=== PATIENT | female | born 1990 | race Hispanic/Latino ===

== ENCOUNTER 2021-02-27 19:29 | Emergency (ER) | payer OTHER, MEDICARE ==
[~2021-02-27] VITALS: Ht 160 cm; Wt 90.3 kg
[2021-02-27 21:03] LABS: APPEARANCE,URINE Cloudy (CLEAR); BILIRUBIN,URINE Negative (NEGATIVE); COLOR,URINE Yellow (YELLOW); GLUCOSE, URINE (UA) Negative (NEGATIVE); KETONES,URINE Negative (NEGATIVE); LEUKOCYTE ESTERASE ,URINE Moderate (NEGATIVE); NITRATE,URINE Negative (NEGATIVE); OCCULT BLOOD,URINE Negative (NEGATIVE); PROTEIN,URINE Negative (NEGATIVE)
[2021-02-27 21:05] LABS: BASOPHILS % (AUTO) 0.6 % (0.0-5.0); EOSINOPHILS % (AUTO) 2.8 % (0.0-8.0); HEMATOCRIT 39.8 % (36-48); LYMPHOCYTES % (AUTO) 31.6 % (21.0-51.0); MEAN CORPUSCULAR HEMOGLOBIN 31.9 pg (27.0-33.0); MEAN CORPUSCULAR HGB CONC 34.2 g/dL (32.0-36.0); MEAN CORPUSCULAR VOLUME 93.4 fL (79-99); NEUTROPHILS % (AUTO) 56.9 % (40.0-77.0); PLATELET COUNT (AUTO) 256 K/uL (130-400); RED BLOOD CELL COUNT(AUTO) 4.26 MIL/uL (4.00-5.50); RED CELL DISTRIBUTION WIDTH 12.2 % (11.0-15.5); WHITE BLOOD COUNT (AUTO) 6.8 K/uL (4.8-10.8)
[2021-02-27 21:05] LABS: HCG,QUAL RESULT NEGATIVE (NEGATIVE)
[2021-02-27 21:08] LABS: BACTERIA,URINE Few /HPF (None Seen); RBC,URINE 0-1 /HPF (0-1)
[2021-02-27 21:09] LABS: MUCUS,URINE Few LPF (None Seen); SQUAMOUS EPITHELIAL CELL,UR Moderate /HPF (0-2)
[2021-02-27 21:23] LABS: CREATININE 0.9 mg/dL (0.5-1.5); POTASSIUM 3.4 mmol/L (3.5-5.1)
[2021-02-27 21:30] LABS: ALBUMIN 3.7 g/dL (3.5-5.0); BILIRUBIN,TOTAL 0.4 mg/dL (0.2-1.0); TOTAL PROTEIN, SERUM 8.4 g/dL (6.0-8.3)
[2021-02-27] MEDS ORDERED: DICYCLOMINE 20MG (10MG/ML) AMP IM STA (23:09)
[2021-02-27] MEDS ORDERED: MAG-77 PO (23:17)
[2021-02-27] MEDS ORDERED: MAG/ALUM/SIMETH 30 ML UDCUP PO ONE (23:30)
[2021-02-27] MEDS ORDERED: PANTOPRAZOLE 40 MG TAB DR PO SCH (23:30)
[2021-02-27 23:59] VITALS: BP 123/78
== END 2021-02-28 00:05 | disposition home or self-care (01) ==
LOC: EDH 19:29
DX: K80.20 Calculus of gallbladder without cholecystitis without obstruction (principal); R10.13 Epigastric pain; E66.9 Obesity, unspecified; E78.00 Pure hypercholesterolemia, unspecified; Z68.39 Body mass index [BMI] 39.0-39.9, adult; Z90.49 Acquired absence of other specified parts of digestive tract
CPT/HCPCS: 36415; 74018; 76705; 80053; 81001; 81025; 83690; 85025; 86140; 86677; 87088; 96372; 99285; J0500

== ENCOUNTER 2022-07-24 06:02 | Emergency (ER) | payer OTHER, MEDICARE ==
[~2022-07-24] VITALS: Ht 160 cm; Wt 95.7 kg
[~2022-07-24 06:02] MED LIST: MAG-77 PO
[2022-07-24 06:13] VITALS: BP 124/80
[2022-07-24 06:37] LABS: BASOPHILS % (AUTO) 0.4 % (0.0-5.0); EOSINOPHILS % (AUTO) 3.3 % (0.0-8.0); HEMATOCRIT 39.8 % (36-48); LYMPHOCYTES % (AUTO) 28.8 % (21.0-51.0); MEAN CORPUSCULAR HEMOGLOBIN 30.4 pg (27.0-33.0); MEAN CORPUSCULAR HGB CONC 32.7 g/dL (32.0-36.0); MONOCYTES % (AUTO) 7.2 % (3.0-13.0); NEUTROPHILS % (AUTO) 59.9 % (40.0-77.0); PLATELET COUNT (AUTO) 254 K/uL (130-400); RED BLOOD CELL COUNT(AUTO) 4.28 MIL/uL (4.00-5.50); RED CELL DISTRIBUTION WIDTH 13.2 % (11.0-15.5); WHITE BLOOD COUNT (AUTO) 5.7 K/uL (4.8-10.8)
[2022-07-24] MEDS ORDERED: ESOM40CA PO (06:40)
[2022-07-24 06:41] LABS: APPEARANCE,URINE CLOUDY (CLEAR); BILIRUBIN,URINE 1 mg/dL (NEGATIVE); COLOR,URINE DARK-YELLOW (YELLOW); GLUCOSE, URINE (UA) NEGATIVE (NEGATIVE); KETONES,URINE NEGATIVE (NEGATIVE); LEUKOCYTE ESTERASE ,URINE 250 Leu/uL (NEGATIVE); NITRATE,URINE NEGATIVE (NEGATIVE); OCCULT BLOOD,URINE LARGE (NEGATIVE); PH,URINE 6.5 (5.0-8.0); PROTEIN,URINE 20 mg/dL (NEGATIVE); UROBILINOGEN,URINE >=8.0 mg/dL (0.2-1.0)
[2022-07-24 06:48] LABS: ALBUMIN 3.6 g/dL (3.5-5.0); CREATININE 0.8 mg/dL (0.5-1.5); POTASSIUM 3.8 mmol/L (3.5-5.1); TOTAL PROTEIN, SERUM 7.6 g/dL (6.0-8.3)
[2022-07-24 06:50] LABS: BACTERIA,URINE RARE /HPF (None Seen); MUCUS,URINE RARE LPF (None Seen); SQUAMOUS EPITHELIAL CELL,UR MANY /HPF (0-2)
[2022-07-24] MEDS ORDERED: SULF1TAB42 PO (06:57)
[2022-07-24] MEDS ORDERED: PANTOPRAZOLE 40 MG/VIAL IVP ONE (07:00)
== END 2022-07-24 07:13 | disposition home or self-care (01) ==
LOC: EDH 06:02
DX: K20.90 Esophagitis, unspecified without bleeding (principal); Z98.890 Other specified postprocedural states
CPT/HCPCS: 80053; 83690; 85025; 87088; 81001; 81025; 36415; 96374; 99283; C9113

== ENCOUNTER 2023-09-10 21:07 | Emergency (ER) | payer OTHER, MEDICARE ==
[~2023-09-10] VITALS: Ht 160 cm; Wt 101.2 kg
[~2023-09-10 21:07] MED LIST changes: +ESOM40CA PO; +SULF1TAB42 PO
[2023-09-10 22:45] LABS: APPEARANCE,URINE CLOUDY (CLEAR); BILIRUBIN,URINE NEGATIVE (NEGATIVE); COLOR,URINE YELLOW (YELLOW); GLUCOSE, URINE (UA) NEGATIVE (NEGATIVE); KETONES,URINE 5 mg/dL (NEGATIVE); LEUKOCYTE ESTERASE ,URINE 250 Leu/uL (NEGATIVE); NITRATE,URINE NEGATIVE (NEGATIVE); OCCULT BLOOD,URINE LARGE (NEGATIVE); PROTEIN,URINE 200 mg/dL (NEGATIVE)
[2023-09-10 22:48] LABS: ADD UA MICROSCOPIC YES
[2023-09-10 22:51] LABS: BACTERIA,URINE FEW /HPF (None Seen); MUCUS,URINE MANY LPF (None Seen); RBC,URINE 51-100 /HPF (0-1); SQUAMOUS EPITHELIAL CELL,UR MANY /HPF (0-2); WBC,URINE 51-100 /HPF (0-1); YEAST,URINE BUDDING RARE /HPF (None Seen)
[2023-09-10] MEDS ORDERED: EPINEPHRINE PF 1MG (1:1,000) 1 MG/ML AMP IH SCH (23:00)
[2023-09-10] MEDS: EPINEPHRINE PF 1MG (1:1,000) 1 MG/ML AMP IM SCH (23:09)
[2023-09-10] MEDS: DEXAMETHASONE SOD PHOSPHATE 4 MG/ML 1ML VIAL IM ONE (23:09)
[2023-09-10] MEDS: DIPHENHYDRAMINE HCL 25 MG CAPSULE PO ONE (23:10)
[2023-09-10] MEDS ORDERED: HC2530O TP (23:51)
[2023-09-10] MEDS ORDERED: AMOX1TAB16 PO (23:51)
[2023-09-11 01:21] VITALS: BP 126/64; PULSE 63; RESP 16; O2SAT 98
== END 2023-09-11 01:23 | disposition home or self-care (01) ==
LOC: EDH 21:07
DX: T78.40XA Allergy, unspecified, initial encounter (principal); M79.89 Other specified soft tissue disorders; N30.00 Acute cystitis without hematuria
CPT/HCPCS: 99284; 87088; 81001; 81025; 96372 ×2; J1100; Q0163; J0171

== ENCOUNTER 2024-08-27 13:59 | Emergency (ER) | payer OTHER, MEDICARE ==
[~2024-08-27] VITALS: Ht 160 cm; Wt 127.9 kg
[~2024-08-27 13:59] MED LIST changes: +AMOX1TAB16 PO; +HC2530O TP
[2024-08-27 14:18] VITALS: TEMP 97.8
[2024-08-27] MEDS ORDERED: SULF1TAB42 PO (14:57)
--- NOTE | 2024-08-27 15:00 | ERN ---
General Chief Complaint: Abscess Stated Complaint: PAIN IN PRIVATE AREA Time Seen by MD: 14:02 Time Seen by Midlevel: 14:02 Source: patient History of Present Illness Initial Comments Patient is a morbidly obese 34-year-old female presenting to the emergency department with right-sided labial pain and swelling that started yesterday. The patient reports a similar episode years ago but never followed up with her OBGYN. Denies any fever, chills, or any other symptoms at this time. Allergies: Coded Allergies: No Known Drug Allergies (Unverified Allergy, Unknown, 02/27/21) Home Meds Active Scripts Hydrocortisone (Hydrocortisone 2.5% Oint) 2.5 % Oint, 1 APPL TP TID for 7 Days, #30 APPL Apply small amount to affected area 3 times a day for 7 days. Prov:RIDDHI CASANOVA NP 09/10/23 Amoxicillin/Potassium Clav (Amox Tr-K Clv 875-125 mg Tab) 875 Mg-125 Mg Tablet, 1 EACH PO BID for 7 Days, #14 TAB 0 Refills Prov:RIDDHI CASANOVA NP 09/10/23 Sulfamethoxazole/Trimethoprim (Bactrim Ds Tablet) 1 Each Tablet, 1 TAB PO BID for 7 Days, #14 TAB 0 Refills Prov:MIRNA WHITTAKER MD 07/24/22 Esomeprazole Magnesium (Nexium) 40 Mg Capsule.dr, 40 MG PO DAILY, #30 CAP 0 Refills Prov:MIRNA WHITTAKER MD 07/24/22 Mag Carb/Al Hydrox/Alginic AC (Gaviscon Liquid) 355 Ml Oral.susp, 15 ML PO TIDPC for indigestion/heartburn, #1 BOTTLE 3 Refills Prov:ROCK CABA MD 02/27/21 Past Medical History Past Medical History: No Pertinent History Medical History Other: HARD OF HEARING Past Surgical History: Cholecystectomy Surgical History Other: Left mastoid Female( History) History: Not Applicable LMP: Apr 26, 2024 ROS Dictation CONSTITUTIONAL: Negative except for HPI HEAD/FACE: Negative except for HPI EENT: Negative except for HPI RESPIRATORY: Negative except for HPI GASTROINTESTINAL/ABDOMINAL: Negative except for HPI GENITOURINARY: Negative except for HPI MUSCULOSKELETAL: Negative except for HPI INTEGUMENTARY: Negative except for HPI NEUROLOGICAL/PSYCH: Negative except for HPI HEMATOLOGIC/LYMPHATIC: Negative except for HPI All Systems Negative, Except as noted above. 13 point review of systems assessed and all negative except for above. Physical Exam Physical Exam Dictation Vital Signs reviewed General Appearance: Alert, oriented x 3, no acute distress, well developed, nourished. Head and Face: non-traumatic. Eyes: PERRL, pink conjunctivas, eyelid no trauma, anterior chamber with arcus senilis. Ears: Pinnas intact and no signs of trauma or erythema ear canals clear and no discharge TM no erythema Nose: No discharge, no bleeding. Oropharynx: Mouth normal, tongue pink, pharynx clear,no erythema, tonsils no exudates, no abscesses noted, mucous membrane moist Neck: Supple, non-tender, no thyromegaly, no masses, no JVD, no bruits Breast:Deferred Chest:No tenderness, no crepitus, no paradoxical movement, no retractions Lungs:Clear, well-ventilated, symmetric, no rales, no wheezing, no rhonchi, no stridor, good breath sounds bilaterally Heart: Regular rate, regular rhythm, no murmur, no gallops Vascular: no peripheral edema, Abdomen: Soft, positive bowel sounds, nondistended, no guarding, nontender, no rebound, no masses no hepatomegaly, no splenomegaly, no Bradshaw's sign, no hernias. Rectal: Deferred Genital: Pelvic examination was performed with RN at bedside, there is a right- sided Bartholin gland cyst with some mild erythema Neurological: Normal speech, motor function intact, sensory function intact Musculoskeletal: Neck nontender, full range of motion, back nontender, full range of motion, Extremities: nontender, full range of motion Skin: Color pink, dry, no turgor, no rash, no lacerations, no abrasions, no contusions. Lymphatic: Deferred MDM MDM: Differential diagnosis: Abscess, Bartholin gland cyst, cellulitis There are no social concerns with this patient. Prescription drug management Prescriptions will include: Bactrim Medical management and examination interpretation discussions were had by me with other qualified healthcare professionals as indicated for the patient's care. ED Course Orders Procedure Category Date Status Time *Nursing CPOE 08/27/24 Transmitted Communication: 14:25 Pelvic Exam Set Up CPOE 08/27/24 Transmitted (Er) 14:25 Ceftriaxone 1g Vial PHA 08/27/24 Transmitted (Rocephine 1g Inj) 15:00 Vital Signs Date Time Temp Pulse Resp B/P (MAP) Pulse Ox O2 Delivery O2 Flow Rate FiO2 08/27/24 14:18 97.9 92 16 127/85 99 Room Air 0 DX & DISP Disposition: Discharge Departure Impression: Primary Impression: Bartholin gland cyst Condition: Stable Scripts Sulfamethoxazole/Trimethoprim (Bactrim Ds Tablet) 800 Mg-160 Mg Tablet 1 TAB PO BID for 7 Days, #14 TAB 0 Refills Prov: JAHAIRA RAMOS 08/27/24 Additional Instructions: You will need to follow up with an OBGYN for further evaluation. Referrals: YVAN RANGEL MD (PCP) BIRD SCHULTZ MD, JAROD N MD Time of Disposition: 14:57 I have reviewed the case, and I agree with, Diagnosis and Plan I performed the substantive portion of the visit. I have reviewed and personally made and approve the management plan that is documented in the note by myself or the LUCÍA. I acknowledge for responsibility for the patient's management plan. JAHAIRA RAMOS Aug 27, 2024 15:00
[2024-08-27 15:03] VITALS: BP 143/73; PULSE 85; RESP 17; O2SAT 96
[2024-08-27] MEDS: cefTRIAXone 1G VIAL IM ONE (15:09)
== END 2024-08-27 15:19 | disposition home or self-care (01) ==
LOC: EDH 13:59
DX: N75.0 Cyst of Bartholin's gland (principal); E66.01 Morbid (severe) obesity due to excess calories; Z68.42 Body mass index [BMI] 45.0-49.9, adult; Z90.49 Acquired absence of other specified parts of digestive tract
CPT/HCPCS: 99284; 96372; J0696; 99283

== ENCOUNTER 2025-03-16 09:38 | Emergency (ER) | payer OTHER, MEDICAID ==
[~2025-03-16] VITALS: Ht 160 cm; Wt 83.9 kg
[2025-03-16 11:25] VITALS: BP 137/68; PULSE 72; RESP 18; TEMP 98.3; O2SAT 97
--- NOTE | 2025-03-16 11:38 | ERN ---
ED Note History of Present Illness Stated Complaint: RT FOOT PAIN Chief Complaint: FOOT INJURY/PAIN Time Seen by MD: 10:13 Time Seen by Midlevel: 10:18 Dictation: 34 Year old female with history of until like to disability brought in by family members for complaining of right ankle pain since Thursday. Patient mother states she was getting off the truck, was what slipped and fell. Denies any head injury, no loss of consciousness. Allergies: Coded Allergies: No Known Drug Allergies (Unverified Allergy, Unknown, 02/27/21) Home Meds Active Scripts Sulfamethoxazole/Trimethoprim (Bactrim Ds Tablet) 800 Mg-160 Mg Tablet, 1 TAB PO BID for 7 Days, #14 TAB 0 Refills Prov:JAHAIRA RAMOS 08/27/24 Hydrocortisone (Hydrocortisone 2.5% Oint) 2.5 % Oint, 1 APPL TP TID for 7 Days, #30 APPL Apply small amount to affected area 3 times a day for 7 days. Prov:RIDDHI CASANOVA NP 09/10/23 Amoxicillin/Potassium Clav (Amox Tr-K Clv 875-125 mg Tab) 875 Mg-125 Mg Tablet, 1 EACH PO BID for 7 Days, #14 TAB 0 Refills Prov:RIDDHI CASANOVA NP 09/10/23 Sulfamethoxazole/Trimethoprim (Bactrim Ds Tablet) 1 Each Tablet, 1 TAB PO BID for 7 Days, #14 TAB 0 Refills Prov:MIRNA WHITTAKER MD 07/24/22 Esomeprazole Magnesium (Nexium) 40 Mg Capsule.dr, 40 MG PO DAILY, #30 CAP 0 Refills Prov:MIRNA WHITTAKER MD 07/24/22 Mag Carb/Al Hydrox/Alginic AC (Gaviscon Liquid) 355 Ml Oral.susp, 15 ML PO TIDPC for indigestion/heartburn, #1 BOTTLE 3 Refills Prov:ROCK CABA MD 02/27/21 Past Medical History Past Medical History: No Pertinent History Additional Past Medical Hx: HARD OF HEARING Surgical History: None Surgical History Other: Left mastoid History: Not Applicable LMP: Feb 28, 2025 Review of System Dictation Constitutional: Negative for fever,chills, and weight loss Eyes: Negative for injury, pain,redness, and discharge ENT: Negative for injury,pain or swelling Cardiovascular: Negative for chest pain, palpitations, and edema Respiratory: Negative for shortness of breath, cough, and wheezing, Abdomen/GI: Negative for abdominal pain, nausea, vomiting, diarrhea, and constipation Back: Negative for injury and pain : Negative for injury, bleeding and discharge MS/Extremity: Complaining of left ankle pain Skin: Negative for rash, and discoloration Neuro: Negative for headache, weakness, numbness, tingling, and seizure Psych: Negative for suicide ideation, homicidal ideation, and hallucinations Review of Systems: was completed Initial Vital Sign VS Vital Signs Date Time Temp Pulse Resp B/P (MAP) Pulse Ox O2 Delivery O2 Flow Rate FiO2 03/16/25 09:42 98.8 72 18 97 Room Air 0 03/16/25 11:25 137/68 21 Physical Exam Dictation General: awake, alert, NAD Head/Face: Normocephalic, atraumatic Eyes: PERRL, EOMI, vision at baseline ENT: oral cavity clear, TMs clear, no signs of infection Neck: Trachea midline, supple, no nuchal rigidity Cardiovascular: RRR, normal S1/S2, No MRGs, no JVD Respiratory: CTAB, no respiratory distress, No rales or wheezes Abdomen: Soft, non-tender, non-distended, normal bowel sounds, no guarding or rebound. Skin: Warm, dry, normal turgor, no rash MS/Extremity: Pulses equal, no cyanosis, neurovascular intact, FROM, no deformity noted to the left ankle Neuro: COAx4, GCS 15, strength 5/5, CN 2-12 intact, normal cerebellar exam, normal gait, Psych: Normal behavior, mood, and affect normal ED Course ED Course Orders Procedure Category Date Status Time Foot Comp 3+Vws Rt RAD 03/16/25 Taken 10:31 Acetaminophen 325 Tab PHA 03/16/25 Complete (Tylenol 325mg Tab 10:31 Ibuprofen 600 Mg PHA 03/16/25 Complete Tablet (Motrin) 10:31 Ankle 2vws Lt RAD 03/16/25 Logged 11:00 Ankle 2vws Rt RAD 03/16/25 Taken 11:12 Current Medications Medications (Trade) Dose Ordered Sig/Nain Route PRN Reason Start Time Stop Time Status Last Admin Dose Admin Acetaminophen (TYLenol 325MG TAB) 650 mg ONCE STAT PO 03/16/25 10:31 03/16/25 10:33 DC 03/16/25 10:56 Ibuprofen (moTRIN) 600 mg ONCE STAT PO 03/16/25 10:31 03/16/25 10:33 DC 03/16/25 10:55 Vital Signs Date Time Temp Pulse Resp B/P (MAP) Pulse Ox O2 Delivery O2 Flow Rate FiO2 03/16/25 11:25 98.2 72 18 137/68 97 Room Air* 0 21 03/16/25 09:42 98.8 72 18 97 Room Air 0 Medical Decision Making MDM MDM: 34 Year old female with history of until like to disability brought in by family members for complaining of right ankle pain since Thursday. Patient mother states she was getting off the truck, was what slipped and fell. Denies any head injury, no loss of consciousness. X-ray of the foot and ankle show no acute finding interpreted by me. How the patient will be given crutches to avoid weight-bearing until she sees him by his PCP and or specialist. Discussed with the family this is more likely a sprain however a hairline fracture can not be completely discarded and he is to follow up outpatient. Mother and sister verbalized understanding, answered all questions. Differential diagnosis: Ankle strain, ankle fracture, Rationale: Tests considered and ordered secondary to shared decision making include: Previous outside records reviewed: Old ER visits. Risk of complication and/or morbidity or mortality of patient management: None Medications-Per medication reconciliation Need for hospitalization: Patient does not meet criteria for hospitalization. Need for emergency major/minor surgery: No There are no social concerns with this patient. Prescription drug management Prescriptions will include symptomatic care Patient's prior external medical records from other ER visits were reviewed by me as indicated. Prior testing and results from previous visits were reviewed. Prior tests were taken into account with medical decision making and resource utilization, independent historian/historians were used to obtain complete medical history. I independently interpreted the test that were performed, results were reviewed by me and considered findings on radiology if ordered. Medical management and examination interpretation discussions were had by me with other qualified healthcare professionals as indicated for the patient's care. DX & DISP Disposition: Discharge Departure Impression: Primary Impression: Ankle sprain Condition: Stable Additional Instructions: Keep ankle elevated , put ice pack to help with swelling and inflammation. Follow up outpatient with PCP and or with specialist. Referrals: YVAN RANGEL MD (PCP) MAGDY ANTONY MD Time of Disposition: 11:37 I have reviewed the case, and I agree with, Diagnosis and Plan TESHA ABRAHAM NP Mar 16, 2025 11:38
--- NOTE | 2025-03-16 11:49 | NUR ---
PT STABLE NO DISTRESS VITALS WNL STATES PAIN HAS GONE DOWN SOME, MEDICINE HELPED. PT HAS RT FOOT/ANKLE WRAPPED AND EDUCATION OF CRUTCHES GIVEN. PT DRIVEN HOME BY MOTHER.
--- NOTE | 2025-03-16 12:38 | HMCIMG ---
EXAM: CR right ankle, 3 View. CLINICAL HISTORY: ankle pain COMPARISON: None provided. FINDINGS: BONES: No acute fracture or aggressive appearing osseous lesion. JOINTS: The joint spaces appear within normal limits. No dislocation. No radiographic evidence of a joint effusion. SOFT TISSUES: Mild soft tissue swelling about the right ankle. IMPRESSION: 1. No acute osseous injury. Mild soft tissue swelling about the right ankle. [facility]
--- NOTE | 2025-03-16 12:44 | HMCIMG ---
EXAM: CR right foot, 3 View. CLINICAL HISTORY: fall COMPARISON: None provided. FINDINGS: BONES: No acute fracture or aggressive appearing osseous lesion. JOINTS: The joint spaces appear within normal limits. No dislocation. SOFT TISSUES: The soft tissues are unremarkable. IMPRESSION: No acute osseous abnormality. /[place]
== END 2025-03-16 11:57 | disposition home or self-care (01) ==
LOC: EDH 09:38
DX: S93.409A Sprain of unspecified ligament of unspecified ankle, initial encounter (principal); W01.0XXA Fall on same level from slipping, tripping and stumbling without subsequent striking against object, initial encounter; Y93.89 Activity, other specified; Y92.89 Other specified places as the place of occurrence of the external cause; Y99.8 Other external cause status
CPT/HCPCS: 73600; 73630; 99284